=== PATIENT | male | born 1985 | race Caucasian/White ===

== ENCOUNTER 2017-12-26 08:37 | Emergency (ER) | payer OTHER ==
[~2017-12-26] VITALS: Ht 167.6 cm; Wt 70.3 kg
[~2017-12-26 08:37] MED LIST: BUSP5 PO; HYDACE5 PO; NAPR500 PO; PROC10 PO; RXHYDACE PO; TRAM50 PO
[2017-12-26] MEDS ORDERED: Naprosyn500 MG PO (09:32)
[2017-12-26] MEDS ORDERED: Cleocin HCl300 MG PO (09:32)
== END 2017-12-26 09:44 | disposition home or self-care (01) ==
LOC: ER 08:37
DX: K04.7 Periapical abscess without sinus (principal); Z88.0 Allergy status to penicillin; Z79.899 Other long term (current) drug therapy; Z79.891 Long term (current) use of opiate analgesic; J45.909 Unspecified asthma, uncomplicated; F17.210 Nicotine dependence, cigarettes, uncomplicated
CPT/HCPCS: 99283

== ENCOUNTER 2017-12-28 03:49 | Emergency (ER) | payer OTHER ==
[~2017-12-28] VITALS: Ht 167.6 cm; Wt 70.3 kg
[~2017-12-28 03:49] MED LIST changes: +Cleocin HCl300 MG PO; +Naprosyn500 MG PO
[2017-12-28] MEDS ORDERED: Cleocin HCl300 MG PO (06:26)
== END 2017-12-28 06:46 | disposition home or self-care (01) ==
LOC: ER 03:49
DX: K04.7 Periapical abscess without sinus (principal); F17.200 Nicotine dependence, unspecified, uncomplicated; Z88.0 Allergy status to penicillin; Z79.899 Other long term (current) drug therapy
CPT/HCPCS: 99283